=== PATIENT | female | born 1935 | race Caucasian/White ===

== ENCOUNTER → 2023-06-08 15:54 | Outpatient (REF) | payer MEDICARE, OTHER, SELFPAY | LOC: HWRAD 15:54 | PROVIDERS: ATTENDING PHYSICIAN Physician Assistant Medical; FAMILY PHYSICIAN Family Medicine | DX: M15.9 Polyosteoarthritis, unspecified (principal); M25.561 Pain in right knee; M25.551 Pain in right hip | CPT/HCPCS: 73502; 73552; 73564 ==

== ENCOUNTER 2023-10-16 13:22 | Emergency (ER) | payer MEDICARE, OTHER, SELFPAY ==
[2023-10-16 13:24] VITALS: BP 158/64
[2023-10-16 13:48] LABS: % Basophils 0.6 % (0-2); % Eosinophils 4.1 % (0-6); % Immature Granulocytes 0.4 % (0-0.5); % Lymphocytes 13.6 % (20.5-51.1); % Monocytes 10.9 % (1.7-9.3); % Neutrophils 70.4 % (42.2-75.2); Absolute Eosinophils 0.3 10^3/uL (0-0.7); Absolute Lymphocytes 0.9 10^3/uL (1.2-3.4); Absolute Monocytes 0.8 10^3/uL (0.1-0.6); Absolute Neutrophils 4.8 10^3/uL (1.4-6.5); Hematocrit 32.6 % (37.0-47.0); Hemoglobin 11.3 g/dL (12.0-16.0); Mean Corp Hgb Conc. 34.7 g/dL (33.0-37.0); Mean Corpuscular Hgb 34.9 pg (27.0-31.0); Mean Corpuscular Volume 100.6 fL (81.0-99.0); Mean Platelet Volume 10.1 fL (7.4-10.4); Nucleated Red Blood Cells % 0 %; Platelet Count 267 10^3/uL (130-400); Red Blood Cell Count 3.24 10^6/uL (4.20-5.40); Red Cell Dist. Width 12.3 % (11.5-14.5); White Blood Cell Count 6.9 10^3/uL (4.8-10.8)
[2023-10-16 14:00] VITALS: BP 159/73
[2023-10-16 14:00] LABS: ALT (SGPT) 33 U/L (0-35); AST (SGOT) 31 U/L (14-36); Albumin 3.8 g/dl (3.5-5.0); Alkaline Phosphatase 59 U/L (38-126); Blood Urea Nitrogen 65 mg/dl (7-17); Calcium 9.5 mg/dl (8.4-10.2); Carbon Dioxide 27 mmol/L (22-30); Chloride 106 mmol/L (98-107); Glucose 103 mg/dl (70-99); Potassium 4.4 mmol/L (3.5-5.1); Sodium 138 mmol/L (135-145); Total Bilirubin 0.5 mg/dl (0.2-1.3); Total Protein 5.9 g/dl (6.3-8.2); eGFR 40.05
--- NOTE | 2023-10-16 14:38 | ED.GENMED ---
History of Present Illness
General
Chief Complaint: Weakness
Time Seen by Provider: 10/16/23 14:38
History of Present Illness
History of Present Illness:
HPI: Patient had multiple falls over the last few weeks. About a week ago she had a rather significant fall and that she struck the left side of her face with significant periorbital ecchymosis. She then describes some paresthesias in the upper
extremity however only inconsistently of this.
EXAM:
GENERAL: Appears generally weak
CERVICAL SPINE: No midline c-spine tenderness with excellent AROM
HEAD: Healing left-sided periorbital ecchymosis
CHEST: No chest wall tenderness, normal heart sounds
LUNGS: Equal lung sounds, no respiratory distress
ABDOMEN: No abdominal tenderness, no peritoneal signs
EXTREMITIES: Normal active range of motion, no tenderness, excellent distal perfusion, no sensory deficits
NEURO: Good strength all extremities, appropriate mental status, normal speech/language, no sensory deficits
TIME OF INITIAL ENCOUNTER: 2:40 PM
NUMBER AND COMPLEXITY OF PROBLEMS ADDRESSED AT THE ENCOUNTER
� Chronic conditions affecting care: High blood pressure, hyperlipidemia, has had prior back surgeries
� Acute Exacerbation and/or Progression of Chronic Illness: This is an acute problem
� Differential Diagnosis includes: Intracranial hemorrhage, electrolyte abnormality, dehydration, BOOM, rhabdomyolysis
AMOUNT AND/OR COMPLEXITY OF DATA TO BE REVIEWED AND ANALYZED
� I performed an independent evaluation of and my interpretation is:
EKG:
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
X-rays:
Laboratory Studies: White count 6.9, hemoglobin 11.3, BUN 65, creatinine 1.3, only questional sign of urinary tract infection
Other:
� Review of other/old records: Hemoglobin in 2010 was 14.0 and BUN in 2010 was 20
� Clinical information was obtained by an independent historian: I spoke to family at bedside
� Prescriptions/Medications Considered but not given:
� Further testing considered but not performed:
RISK OF COMPLICATIONS AND/OR MORBIDITY OR MORTALITY OF PATIENT MANAGEMENT
� Social determinants of health affecting care:
� Discussion with other providers:
� Escalation of care including admission/observation vs risk of discharge considered: The patient was given IV fluids as she had an elevated BUN to creatinine ratio. She does not have any ongoing paresthesias currently but on
reassessment at 4:50 PM complained of some discomfort in the right low back. On reassessment, she has no midline tenderness and no bony tenderness but does have some vague soft tissue tenderness with palpation right posterior lumbar region.
Past History
Past History
ED Past Medical History: HTN; Negative Hypercholesterolemia, IDDM or NIDDM
ED Past Surgical History: Orthopedic; Negative Appendectomy or Bowel resection
Social History
Tobacco: Non-smoker
Alcohol: None
Drug: None
Personal:
Living: with family
Employment: Retired
Family History
Family History: Hypertension
Phy Exam
Physical Exam
Physical Exam:
See HPI
Course
Orders/Labs/Results
Orders:
Orders
10/16/23 13:40
Complete Blood Count/With Diff Urgent
Comprehensive Metabolic Panel Urgent
Creatine Phosphokinase Urgent
Comment: ADD
10/16/23 14:40
0.9% Sodium Chloride 1000 ml [Nss] 1,000 ml IV BOLUS
10/16/23 14:49
Add On- LAB Urgent
Tests Added?: ck
CT Head W/o Iv Contrast Urgent
Comment:
Reason For Exam: freq falls
Straight cath- Treatment ONCE
10/16/23 15:41
Urinalysis Reflex To Culture Urgent
Date Specimen was Collected: 10/16/23
Time Specimen was Collected: 14:50
Urine Microscopic Reflex Cult Urgent
Urine Culture Urgent
SILVERIO Source: U
Specimen Description:
Obtained by: Random
Date Specimen was Collected: 10/16/23
Time Specimen was Collected: 14:50
Abnormal Lab Results
10/16/23 10/16/23
13:40 15:41
RBC 3.24 L 10^6/uL
(4.20-5.40)
Hgb 11.3 L g/dL
(12.0-16.0)
Hct 32.6 L %
(37.0-47.0)
MCV 100.6 H fL
(81.0-99.0)
MCH 34.9 H pg
(27.0-31.0)
Absolute Lymphs (auto) 0.9 L 10^3/uL
(1.2-3.4)
Absolute Monos (auto) 0.8 H 10^3/uL
(0.1-0.6)
Lymphocytes % 13.6 L %
(20.5-51.1)
Monocytes % 10.9 H %
(1.7-9.3)
BUN 65 H mg/dl
(7-17)
Creatinine 1.3 H mg/dL
(0.6-1.0)
Glucose 103 H mg/dl
(70-99)
Total Protein 5.9 L g/dl
(6.3-8.2)
Leukocyte Esterase Rfl 1+ A
(Negative)
Urine Bacteria (Reflex) Few A
(Negative)
10/16/23 13:40
10/16/23 13:40
Vital Signs
Initial and Last Documented VS:
Initial Vital Signs
Temp Pulse Resp BP Pulse Ox
98.7 F 62 20 158/64 95
10/16/23 13:24 10/16/23 13:24 10/16/23 13:24 10/16/23 13:24 10/16/23 13:24
Last Documented Vital Signs
Temp Pulse Resp BP Pulse Ox
98.7 F 62 20 151/78 95
10/16/23 13:24 10/16/23 13:24 10/16/23 13:24 10/16/23 16:25 10/16/23 16:26
*Critical Care Note
Total Time (30-74mins, 75-104mins- exclusive of procedures): Not Applicable
ED Attending Note
-
Portions of this chart may have been created with voice recognition software.� Occasional wrong word or��sound alike� substitutions may have occurred due to the inherent limitations of voice recognition software.
Discharge Plan
Departure
Patient Disposition: Home (Routine Discharge)
Date of Disposition: 10/16/23
Time of Disposition: 16:51
Patient with high blood pressure during this ER visit?: Yes
Discharge Problem:
Falls frequently
Instructions: Head Injury in Adults (DC), BLOOD PRESSURE
Prescriptions:
No Action
HYDROCHLOROTHIAZIDE
1 tab PO DAILY
Patient Comments:
dose unknown
Prinivil
1 tab PO DAILY
Patient Comments:
dose unknown
Wellbutrin:
2 tab PO DAILY
Patient Comments:
dose unknown
metronidazole 500 MG tablet
500 mg PO TID Qty: 30 0RF
magnesium hydroxide [Milk of Magnesia] 400 MG/5 ML suspension
400 mg PO Q8 Qty: 10 0RF
Rx Instructions:
1 tsp prn constipation
docusate sodium 100 MG capsule
100 mg PO BID Qty: 20 0RF
levofloxacin 500 MG tablet
500 mg PO DAILY Qty: 10 0RF
Referrals:
Hansel Abdi MD [Family Provider] -
Activity Restrictions/Additional Instructions:
White blood cell count is normal, hemoglobin is slightly low. The BUN and creatinine are elevated which suggest some degree of dehydration�we gave a liter of IV fluids. Urinalysis shows only questionable abnormality without evident infection
however we will call you if the urine culture is abnormal. Brain CAT scan showed no acute abnormality.
Interventions
Interventions:
*Risk Screen - Suicide Last Done: 10/16/23 13:24
*General Assessment Last Done: 10/16/23 13:24
*Neglect/Abuse Screening Last Done: 10/16/23 13:24
ED- Cardiac Assessment Last Done: 10/16/23 13:43
ED-Musculoskeletal Assessment Last Done: 10/16/23 13:43
ED- Neurological Assessment Last Done: 10/16/23 13:43
ED- Pulmonary Assessment Last Done: 10/16/23 13:43
ED-Skin Assessment Last Done: 10/16/23 13:43
Discharge Date and Time
Print Language: LEBANESE
[2023-10-16 15:00] VITALS: BP 177/64
--- NOTE | 2023-10-16 15:28 | CM ---
Addendum entered by Funmi Perez RN 10/16/23 15:31:
CM discussed SNF placement. CM provided education on payment sources for SNF. Patient is in the emergency room and placement would have to be private pay. Daughter expressed understanding.
Original Note:
CM met with daughter and patient in room. Patient's daughter reports increasing falls over the last few weeks and particularly over the last 48 hours which prompted the ER visit. Patient's daughter stated that bother her and her work full
time and they are concerned that patient will be at risk when they are away. CM offered [facility] for RN and PT services. CM discussed evaluation by [facility] on [facility] . Daughter was agreeable to referral. CM further discussed private
pay home care providers. Daughter is interested in private pay caregiver list.
CM sent referral via [facility] to [facility], of note patient had been known to them in the past. CM emailed referral for services to [facility]. CM provided family with written list of private pay agencies.
CM updated ER physician.
[2023-10-16 15:40] LABS: Creatine Phosphokinase 90 U/L (30-135)
[2023-10-16] MEDS: NSS 1000 IV (15:41)
[2023-10-16 15:50] LABS: Urine Albumin Negative (Neg - Trace); Urine Bilirubin Negative (Negative); Urine Character Clear (Clear); Urine Color Yellow; Urine Glucose Negative (Negative); Urine Ketone Negative (Negative); Urine Leukocyte 1+ (Negative); Urine Nitrite Negative (Negative); Urine Occult Blood Negative (Negative); Urine Urobilinogen Negative (Neg - 1+)
[2023-10-16 16:06] LABS: Urine Bacteria Few (Negative); Urine Red Blood Cell 0-2 /HPF (0-2)
[2023-10-16 16:25] VITALS: BP 151/78
[2023-10-16 17:00] VITALS: BP 165/67
== END 2023-10-16 17:26 | disposition home or self-care (01) ==
LOC: EMR 13:22
PROVIDERS: Student in an Organized Health Care Education/Training Program; EMERGENCY PHYSICIAN Emergency Medicine; FAMILY PHYSICIAN Family Medicine
DX: R29.6 Repeated falls (principal); W19.XXXA Unspecified fall, initial encounter; I10 Essential (primary) hypertension; R53.1 Weakness; Z82.49 Family history of ischemic heart disease and other diseases of the circulatory system; Z86.73 Personal history of transient ischemic attack (TIA), and cerebral infarction without residual deficits; Z90.49 Acquired absence of other specified parts of digestive tract
CPT/HCPCS: 99284; 96360; 70450; 80053; 81003; 81015; 82550; 85025; 87086